=== PATIENT | male | born 1965 | race Caucasian/White ===

== ENCOUNTER 2022-06-13 09:58 | Outpatient (CLI) | payer BC, SELFPAY ==
[2022-06-13 14:14] LABS: Chloride* 102 mmol/L (96-114); Potassium* 4.7 mmol/L (3.6-5.1); Sodium* 138 mmol/L (135-149)
[2022-06-13 14:17] LABS: Carbon Dioxide* 30 mmol/L (20-32); Cholesterol* 170 mg/dL (90-199); Creatinine* 0.9 mg/dL (0.5-1.5); Estimated Glomerular Filt Rate 100 ml/min
[2022-06-13 14:18] LABS: Blood Urea Nitrogen* 12 mg/dL (7-30); Calcium* 9.7 mg/dL (8.4-10.6); Glucose* 85 mg/dL (60-115); HDL Cholesterol* 44 mg/dL (>=40); LDL Cholesterol Calculated 109 mg/dL (<100); Triglycerides* 83 mg/dL (40-149)
[2022-06-13 14:49] LABS: PSA Screen* 0.67 ng/mL (0.10-4.00)
== END 2022-06-13 09:59 | disposition home or self-care (01) ==
PROVIDERS: PCP Family Medicine; Visit Provider Family Medicine
DX: Z00.00 Encounter for general adult medical examination without abnormal findings (principal); E78.5 Hyperlipidemia, unspecified; I10 Essential (primary) hypertension; Z12.5 Encounter for screening for malignant neoplasm of prostate; Z13.1 Encounter for screening for diabetes mellitus
CPT/HCPCS: 80048; 80061; 84153

== ENCOUNTER 2023-06-25 08:45 | Outpatient (CLI) | payer BC, SELFPAY | END 2023-06-25 08:46 | disposition home or self-care (01) | PROVIDERS: PCP Family Medicine; Visit Provider Family Medicine | DX: Z00.00 Encounter for general adult medical examination without abnormal findings (principal); I10 Essential (primary) hypertension; E78.5 Hyperlipidemia, unspecified | CPT/HCPCS: 80048; 80061 ==

== ENCOUNTER 2024-06-15 10:46 | Outpatient (CLI) | payer BC, SELFPAY | END 2024-06-15 10:47 | disposition home or self-care (01) | PROVIDERS: PCP Family Medicine; Visit Provider Family Medicine | DX: Z00.00 Encounter for general adult medical examination without abnormal findings (principal); I10 Essential (primary) hypertension; E78.5 Hyperlipidemia, unspecified; Z12.5 Encounter for screening for malignant neoplasm of prostate | CPT/HCPCS: 80048; 80061; G0103 ==

== ENCOUNTER 2024-08-24 11:28 | Outpatient (CLI) | payer BC, SELFPAY ==
--- NOTE | 2024-08-24 12:27 | P.ANES_ITS ---
Anesthesia Charges Start Date/Time Anesthesia Start Date: 08/24/24 Anesthesia Start Time: 12:35 Stop Date/Time Anesthesia Stop Date: 08/24/24 Anesthesia Stop Time: 12:55 Coding CPT Codes CPT Codes: ANES UPR GI NDSC PX NOS - 30723 ([id number]) P2 - PATIENT W/MILD SYST DISEASE, QK - MANUFACTURING BAKER 2-4 CNCRNT ANES PROC, QX - REGULATORY SUBMISSIONS SPECIALIST SVC W/ MD MED DIRECTION
--- NOTE | 2024-08-24 12:27 | W.ANESCHARGE ---
Anesthesia Charges Start Date/Time Anesthesia Start Date: 08/24/24 Anesthesia Start Time: 12:35 Stop Date/Time Anesthesia Stop Date: 08/24/24 Anesthesia Stop Time: 12:55 Coding CPT Codes CPT Codes: ANES UPR GI NDSC PX NOS - 13343 ([id number]) P2 - PATIENT W/MILD SYST DISEASE, QK - DIRECTOR INDUSTRIAL RELATIONS 2-4 CNCRNT ANES PROC, QX - ASSISTANT PROFESSOR OF ART SVC W/ MD MED DIRECTION
--- NOTE | 2024-08-24 12:58 | P.ANES_ITS ---
Anesthesia Charges Start Date/Time Anesthesia Start Date: 08/24/24 Anesthesia Start Time: 12:35 Stop Date/Time Anesthesia Stop Date: 08/24/24 Anesthesia Stop Time: 12:55 Coding CPT Codes CPT Codes: ANES UPR GI NDSC PX NOS - [id number] ([id number]) P2 - PATIENT W/MILD SYST DISEASE, QX - HEEL SPLITTER SVC W/ MD MED DIRECTION, QK - TELEPHONE OPERATOR RECEPTIONIST 2-4 CNCRNT ANES PROC
--- NOTE | 2024-08-24 12:58 | W.ANESCHARGE ---
Anesthesia Charges Start Date/Time Anesthesia Start Date: 08/24/24 Anesthesia Start Time: 12:35 Stop Date/Time Anesthesia Stop Date: 08/24/24 Anesthesia Stop Time: 12:55 Coding CPT Codes CPT Codes: ANES UPR GI NDSC PX NOS - [id number] ([id number]) P2 - PATIENT W/MILD SYST DISEASE, QX - PORTFOLIO ARCHITECT SVC W/ MD MED DIRECTION, QK - ATTENDANT SALES 2-4 CNCRNT ANES PROC
== END 2024-08-24 11:29 | disposition home or self-care (01) ==
LOC: OP CLINIC 11:29
PROVIDERS: PCP Family Medicine; Visit Provider Internal Medicine
DX: R10.13 Epigastric pain (principal); K25.9 Gastric ulcer, unspecified as acute or chronic, without hemorrhage or perforation
CPT/HCPCS: 00731; 43239; 88305; J2704; J3490